=== PATIENT | female | born 1980 | race Caucasian/White ===

== ENCOUNTER 2016-10-13 13:41 | Emergency (ER) | payer OTHER ==
[~2016-10-13] VITALS: Ht 170.2 cm; Wt 104.5 kg
[2016-10-13 13:41] VITALS: Ht 170.2 cm; Wt 104.5 kg
[2016-10-13] MEDS ORDERED: SOD CHLORIDE 0.9% 2,000 ML IV STA (13:48)
[2016-10-13 14:21] LABS: ADD SCAN DIFF NO
[2016-10-13 14:28] VITALS: TEMP 98.2
[2016-10-13 14:28] LABS: BASOPHILS % 0.6 % (0.0-2.0); EOSINOPHILS % 0.6 % (0.0-7.0); HEMATOCRIT 38.7 % (37.0-47.0); HEMOGLOBIN 12.4 g/dl (12.0-16.0); LYMPHOCYTES % 15.9 % (15.0-51.0); MEAN CORPUSCULAR HEMOGLOBIN 28.1 pg (29.0-33.0); MEAN CORPUSCULAR VOLUME 87.8 fl (82.0-101.0); MEAN PLATELET VOLUME 10.8 fl (7.4-10.4); MONOCYTE # 0.3 10^3/ul (0.3-0.9); MONOCYTES % 4.5 % (0.0-11.0); NEUTROPHIL # 4.8 10^3/ul (1.6-7.5); NEUTROPHILS % 78.1 % (39.0-77.0); PLATELET COUNT 346 10^3/UL (140-415); RED BLOOD COUNT 4.41 10^6/ul (4.20-5.40); RED CELL DISTRIBUTION WIDTH 16.8 % (11.5-14.5); WHITE BLOOD COUNT 6.2 10^3/ul (4.8-10.8)
[2016-10-13 14:34] LABS: CREATININE 1.16 mg/dl (0.44-1.00)
[2016-10-13 14:35] LABS: CALCIUM 9.8 mg/dl (8.4-10.2)
[2016-10-13 14:38] LABS: ACETAMINOPHEN < 10.0 ug/ml (10.0-30.0); ETHANOL < 10.0 mg/dl; SALICYLATE < 1.0 mg/dl (5.0-30.0)
[2016-10-13] MEDS ORDERED: POTASSIUM CHLORIDE (SR) 20 MEQ TAB PO STA (15:19)
[2016-10-13] MEDS ORDERED: INSULIN LISPRO 100 UNIT/ML VIAL SC STA ×2 (15:19→16:09)
[2016-10-13 15:52] VITALS: BP 133/85; PULSE 88; RESP 13
--- NOTE | 2016-10-13 17:01 | ERD ---
ER Documentation Chief Complaint Date/Time DATE: 10/13/16 TIME: 17:01 Chief Complaint hyperglycemia x today HPI Patient is a 36-year-old female with diabetes who presents with high blood sugar. The patient was brought in by ambulance. Police are involved and the patient is under arrest. She is here for medical clearance for booking. She has had no insulin for the past 3 days. She feels dehydrated and had urinary symptoms. She says that she has been staying at motels recently. There was drugs or found in her car which is why she is under arrest. Upon review of old medical records this is the patient's first visit to the emergency department. ROS All systems reviewed and are negative except as per history of present illness. Medications Home Meds Unable to Obtain Active Prescriptions or Reported Meds Allergies Allergies: Coded Allergies: Unable to Assess (Verified Allergy, Severe, 10/13/16) PMhx/Soc History of Surgery: Yes (c/s gastric bipass) Anesthesia Reaction: No Hx Neurological Disorder: No Hx Respiratory Disorders: Yes (MRSA in base of L lung) Hx Cardiac Disorders: Yes (HTN) Hx Psychiatric Problems: No Hx Miscellaneous Medical Probl: Yes (DM, Lupus ) Hx Alcohol Use: No Hx Substance Use: No Hx Tobacco Use: Yes Smoking Status: Former smoker FmHx Family History: diabetes Physical Exam Vitals Vital Signs Date Time Temp Pulse Resp B/P Pulse Ox O2 Delivery O2 Flow Rate FiO2 10/13/16 15:52 88 13 133/85 100 Room Air 10/13/16 14:28 98.2 84 21 149/75 95 Room Air 10/13/16 13:41 98.7 95 18 173/87 100 Physical Exam Const: No acute distress Head: Atraumatic Eyes: Normal Conjunctiva ENT: Normal External Ears, Nose and Mouth. Neck: Full range of motion..~ No meningismus. Resp: Clear to auscultation bilaterally Cardio: Regular rate and rhythm, no murmurs Abd: Soft, non tender, non distended. Normal bowel sounds Skin: No petechiae or rashes Back: No midline or flank tenderness Ext: No cyanosis, or edema Neur: Awake and alert Psych: Normal Mood and Affect Result Diagram: 10/13/16 1413 10/13/16 1413 Results 24 hrs Laboratory Tests Test 10/13/16 14:13 10/13/16 14:26 10/13/16 15:45 10/13/16 16:05 Acetaminophen Level < 10.0ug/ml Anion Gap 19 Basophils # 0.010^3/ul Basophils % 0.6% Blood Urea Nitrogen 10mg/dl Calcium Level 9.8mg/dl Carbon Dioxide Level 32mmol/L Chloride Level 86mmol/L Creatinine 1.16mg/dl Eosinophils # 0.010^3/ul Eosinophils % 0.6% Ethyl Alcohol Level < 10.0mg/dl Glucose Level 562mg/dl Hematocrit 38.7% Hemoglobin 12.4g/dl Lactic Acid Level 2.2mmol/L 2.1mmol/L Lymphocytes # 1.010^3/ul Lymphocytes % 15.9% Mean Corpuscular Hemoglobin 28.1pg Mean Corpuscular Hemoglobin Concent 32.0g/dl Mean Corpuscular Volume 87.8fl Mean Platelet Volume 10.8fl Monocytes # 0.310^3/ul Monocytes % 4.5% Neutrophils # 4.810^3/ul Neutrophils % 78.1% Nucleated Red Blood Cells # 0.010^3/ul Nucleated Red Blood Cells % 0.0/100WBC Platelet Count 72963^3/UL Potassium Level 3.0mmol/L Red Blood Count 4.4110^6/ul Red Cell Distribution Width 16.8% Salicylates Level < 1.0mg/dl Sodium Level 134mmol/L White Blood Count 6.210^3/ul Bedside Glucose 520mg/dL 447mg/dL Current Medications Medications (Trade) Dose Ordered Sig/Samira Route PRN Reason Start Time Stop Time Status Last Admin Dose Admin Sodium Chloride (NS) 2,000 ml @ 1,000 mls/hr Q2H STAT IV 10/13/16 13:48 10/13/16 15:47 DC 10/13/16 14:16 Potassium Chloride (Klor-Con 20) 40 meq ONCE STAT PO 10/13/16 15:19 10/13/16 15:20 DC 10/13/16 15:34 Insulin Human Lispro (Humalog) 10 unit ONCE STAT SC 10/13/16 15:19 10/13/16 15:20 DC 10/13/16 15:35 Insulin Human Lispro (Humalog) 10 unit ONCE STAT SC 10/13/16 16:09 10/13/16 16:10 DC 10/13/16 16:35 Procedures/MDM Patient is a 36-year-old female presents with hyperglycemia. She was found to have an elevated sugar of 562 but no signs of diabetic ketoacidosis. At this point I believe outpatient management is appropriate. The patient was given potassium by mouth and then was given insulin as she did have hypokalemia. At this point the patient will be discharged into the care of the police as she is going to be put in residential. I doubt serious bacterial infection or other serious etiology. I believe outpatient management is appropriate. She should take her insulin as directed by her doctor. She was given 10 units of Humalog in the emergency department twice. Departure Diagnosis: Primary Impression: Altered awareness, transient Additional Impression: Hyperglycemia Condition: Fair Patient Instructions: Hyperglycemia (High Blood Sugar) Referrals: [facility] YOU HAVE RECEIVED A MEDICAL SCREENING EXAM AND THE RESULTS INDICATE THAT YOU DO NOT HAVE A CONDITION THAT REQUIRES URGENT TREATMENT IN THE EMERGENCY DEPARTMENT. FURTHER EVALUATION AND TREATMENT OF YOUR CONDITION CAN WAIT UNTIL YOU ARE SEEN IN YOUR DOCTORS OFFICE WITHIN THE NEXT 1-2 DAYS. IT IS YOUR RESPONSIBILITY TO MAKE AN APPOINTMENT FOR [facility]. IF YOU HAVE A PRIMARY DOCTOR --you should call your primary doctor and schedule an appointment IF YOU DO NOT HAVE A PRIMARY DOCTOR YOU CAN CALL OUR PHYSICIAN REFERRAL HOTLINE AT IF YOU CAN NOT AFFORD TO SEE A PHYSICIAN YOU CAN CHOSE FROM THE FOLLOWING [facility] [address] [facility]. [facility] [address] [facility] [facility] [address] [facility] [address] [facility]. [facility] [address] [facility]. [facility]. [address] [place] Additional Instructions: Call your primary care doctor TOMORROW for an appointment during the next 1-2 days.See the doctor sooner or return here if your condition worsens before your appointment time. NGUYỄN ALEXIS MD Oct 13, 2016 17:01
== END 2016-10-13 16:42 ==
LOC: E/R 13:41
DX: R40.4 Transient alteration of awareness (principal); E11.65 Type 2 diabetes mellitus with hyperglycemia; R40.2142 Coma scale, eyes open, spontaneous, at arrival to emergency department; R40.2252 Coma scale, best verbal response, oriented, at arrival to emergency department; R40.2362 Coma scale, best motor response, obeys commands, at arrival to emergency department; Z87.891 Personal history of nicotine dependence
CPT/HCPCS: 80048; 80306; 82962; 83605; 85025; J1815; J7030; 36415; 96372